=== PATIENT | male | born 1990 | race African-American/Black ===

== ENCOUNTER 2020-02-04 07:52 | Emergency (ER) | payer OTHER ==
[~2020-02-04] VITALS: Ht 200.7 cm; Wt 104.0 kg
[2020-02-04] MEDS ORDERED: TRUV1TAB2 PO (08:04)
[2020-02-04] MEDS ORDERED: ZOLO50TA PO (08:04)
--- NOTE | 2020-02-04 08:36 | REP ---
INDICATION: pain over r mcp spreading distally COMPARISON: None. TECHNIQUE: AP, lateral, bilateral oblique views right hand. FINDINGS: The osseous structures and joint spaces are intact and normal. There is no evidence for acute fracture or dislocation. Surrounding soft tissues are unremarkable. No subcutaneous emphysema or radiodense foreign body. IMPRESSION: Normal age-appropriate right hand radiograph series. No acute fracture or dislocation. <Electronically signed by Tim Pro > 02/04/20 [id number]
[2020-02-04 08:53] VITALS: BP 133/88
== END 2020-02-04 08:53 | disposition home or self-care (01) ==
LOC: M ED 07:52
DX: S63.610A Unspecified sprain of right index finger, initial encounter (principal); W01.0XXA Fall on same level from slipping, tripping and stumbling without subsequent striking against object, initial encounter; Y92.019 Unspecified place in single-family (private) house as the place of occurrence of the external cause; Y93.9 Activity, unspecified; Y99.9 Unspecified external cause status